=== PATIENT | male | born 1970 | race Caucasian/White ===

== ENCOUNTER 2021-10-04 10:54 | Outpatient (CLI) | payer BC, MEDICAID, SELFPAY ==
--- NOTE | 2021-10-04 06:00 | DI.RAD_ITS ---
Exam(s) XR PAIN CLINIC LUMBAR SP 2V EXAM: XR PAIN CLINIC LUMBAR SP 2V CLINICAL HISTORY: Dx: Lumbar Spondylosis. TECHNIQUE: Fluoroscopy was provided for the referring physician for guidance with performing injecti on procedure. COMPARISON: No exams were available for comparison FINDINGS: Please see procedure note for details. Fluoro time: 66.4 RADIATION DOSE DELIVERED: eran Aiken=42.39 mGy
[2021-10-04 11:27] VITALS: BP 114/89; PULSE 76; RESP 16; TEMP 37.1; O2SAT 98
[2021-10-04 12:07] VITALS: BP 151/99; PULSE 75; RESP 20; O2SAT 99
--- NOTE | 2021-10-04 12:14 | PDOC.PAIN ---
Pain Clinic Procedure Note Procedure Note Procedure Note: Thoraco-lumbar Medial Branch Blocks Umesh Gaspar has been referred to the [facility] for lumbar/sacral medial branch blocks. COMMENTS: I previously evaluated him in our clinic. Pre-procedure pain VAS = 8/10. Dx: Lumbosacral spondylosis without myelopathy Patient was interviewed and the medical record reviewed. There were no medical, pharmacologic, radiographic or other structural contraindications to attempting fluoroscopically guided local anesthetic lumbar/sacral medial branch blocks. Risks and expected side effects as well as potential benefit of the procedure were reviewed and voiced concerns addressed. The printed consent form was signed and witnessed. Standard time-out procedure was performed. Patient was placed in the prone position on the fluoroscopy table and automated blood pressure cuff and pulse oximeter applied. The skin entry points for approaching the anatomic target points of the segmental medial branches of bilateral [id number] identified with anfluoroscopy and marked. Following thorough Chlorhexadine preparation of the skin and draping and 1% lidocaine infiltration of the skin entry points and subcutaneous tissues, a 25 gauge 3.5 spinal needle was placed under fluoroscopic guidance down on to the target point for each respective segmental medial branch.Position was confirmed in A/P, oblique and lateral views with 0.25ml of omnipaque 240. At this point I injected 0.5ml of 0.5% Bupivacaine to each segmental sensory nerve. Vital signs were stable throughout the procedure and were as recorded in the docflowsheet by the nursing staff. Follow up plans and appointments were discussed and was instructed to keep careful note of how the usual pain was modified by these injections. Specifically was asked to keep a pain diary for the next 24 hours using a numeric pain scale of 0-10 and report these results at the follow-up visit. Post procedure instruction was given as documented in the nursing documentation and having met discharge criteria. Patient was discharged from the [facility]. Based on the medial branches blocked today, if the patient has adequate relief and we are able to proceed to radiofrequency ablation, the treatment should result in the denervation of the bilateral T12-L1 and L1-L2 FACET JOINTS. We would expect to denervate a total of 4 facets during the radiofrequency ablation. COMMENTS: His post-procedure pain VAS was 3/10. Avni Javed DO, MPH [facility]-Pain Management [facility] CC: Jeremi Mckay
[2021-10-04] MEDS: Omnipaque 240 MG/ML 50 ML BTL IJ (12:18)
[2021-10-04] MEDS: Bupivacaine 0.5% Pres-Free 10 ML VIAL IJ (12:18)
== END 2021-10-04 10:55 | disposition home or self-care (01) ==
PROVIDERS: PCP Physician Assistant Medical; Visit Provider Preventive Medicine Occupational Medicine
DX: M47.815 Spondylosis without myelopathy or radiculopathy, thoracolumbar region (principal)
CPT/HCPCS: 64493; 64494; 72100; Q9967

== ENCOUNTER 2021-12-26 14:00 | Outpatient (CLI) | payer BC, MEDICAID, SELFPAY ==
--- NOTE | 2021-12-26 06:00 | DI.RAD_ITS ---
Exam(s) XR PAIN CLINIC LUMBAR SP 2V EXAM: XR PAIN CLINIC LUMBAR SP 2V CLINICAL HISTORY: Dx: Lumbar Spondylosis TECHNIQUE: 2D and realtime digital imaging was performed. CONTRAST MATERIAL: Refer to procedure report. COMPARISON: No exams were available for comparison FINDINGS: Fluoroscopy was provided for Dr. Javed during the performance of a medial branch block. Please refer to the procedure report for complete details. Ka,r=41.9 mGy IMPRESSION: RADIATION DOSE DELIVERED:
[2021-12-26 14:16] VITALS: BP 137/91; PULSE 80; RESP 20; TEMP 36.9; O2SAT 96
--- NOTE | 2021-12-26 14:58 | PDOC.PAIN ---
Pain Clinic Procedure Note Procedure Note Procedure Note: Lumbar/Sacral Medial Branch Blocks Umesh Gaspar has been referred to the [facility] for lumbar/sacral medial branch blocks. COMMENTS: He did well with the first blocks on 10/04/21. Pre-procedure pain VAS = 7/10. 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 There were no medical, pharmacologic, radiographic or other structural contraindications to attempting fluoroscopically guided local anesthetic lumbar/sacral medial branch blocks. Risks and expected side effects as well as potential benefit of the procedure were reviewed and voiced concerns addressed. The printed consent form was signed and witnessed. Standard time-out procedure was performed. Patient was placed in the prone position on the fluoroscopy table and automated blood pressure cuff and pulse oximeter applied. The skin entry points for approaching the anatomic target points of the segmental medial branches of bilateral T11, T12, and L1 were identified with anfluoroscopy and marked. Following thorough Chlorhexadine preparation of the skin and draping, a 25 gauge 3.5 spinal needle was placed under fluoroscopic guidance down on to the target point for each respective segmental medial branch.Position was confirmed in A/P, oblique and lateral views with 0.25ml of omnipaque 240. At this point, I injected 0.5cc of 2% Lidocaine at each segmental nerve. Vital signs were stable throughout the procedure and were as recorded in the docflowsheet by the nursing staff. Follow up plans and appointments were discussed and was instructed to keep careful note of how the usual pain was modified by these injections. Specifically was asked to keep a pain diary for the next 24 hours using a numeric pain scale of 0-10 and report these results at the follow-up visit. Post procedure instruction was given as documented in the nursing documentation and having met discharge criteria. Patient was discharged from the [facility]. Based on the medial branches blocked today, if the patient has adequate relief and we are able to proceed to radiofrequency ablation, the treatment should result in the denervation of the bilateral T12-L1 and L1-L2 FACET JOINTS. We would expect to denervate a total of 4 facets during the radiofrequency ablation. COMMENTS: Post-procedure pain VAS = 3/10. Avni Javed DO, MPH [facility]-Pain Management [facility] CC: Jeremi Mckay
[2021-12-26 15:09] VITALS: BP 152/84; PULSE 77; RESP 18; O2SAT 98
[2021-12-26] MEDS: Omnipaque 240 MG/ML 50 ML BTL IJ (15:11)
[2021-12-26] MEDS: Lidocaine 2% Pres-Free 2 ML VIAL IJ (15:11)
== END 2021-12-26 14:01 | disposition home or self-care (01) ==
PROVIDERS: PCP Physician Assistant Medical; Visit Provider Preventive Medicine Occupational Medicine
DX: M47.815 Spondylosis without myelopathy or radiculopathy, thoracolumbar region (principal)
CPT/HCPCS: 64493; 64494; 72100; Q9967

== ENCOUNTER 2022-02-06 07:38 | Outpatient (CLI) | payer MEDICAID, SELFPAY ==
--- NOTE | 2022-02-06 06:00 | DI.RAD_ITS ---
Exam(s) XR PAIN CLINIC LUMBAR SP 2V EXAM: XR PAIN CLINIC LUMBAR SP 2V CLINICAL HISTORY: Dx: Lumbar Spondylosis. TECHNIQUE: Fluoroscopy was provided for the referring physician for guidance with performing pain cl inic injection procedure. COMPARISON: No exams were available for comparison FINDINGS: Please see procedure note for details. Fluoro time: 89.6 seconds RADIATION DOSE DELIVERED: eran Aiken=56.12 mGy
[2022-02-06 07:48] VITALS: BP 136/93; PULSE 74; RESP 20; TEMP 37.1; O2SAT 98
[2022-02-06] MEDS: fentaNYL 100 MCG/2 ML VIAL IVP ×3 (08:26→08:41)
[2022-02-06] MEDS: Midazolam 2 MG/2 ML VIAL IVP (08:27)
[2022-02-06] MEDS: Lactated Ringers 500 ML 80 ML IV (08:48)
[2022-02-06 09:04] VITALS: BP 130/82; PULSE 73; RESP 20; O2SAT 97
--- NOTE | 2022-02-06 09:18 | PDOC.PAIN ---
Pain Clinic Procedure Note Procedure Note Procedure Note: Bilateral Thoracolumbar Radiofrequency with Coolief Machine PROCEDURE NOTE Date of Service: February 06, 2022 Patient: Umesh Gaspar Provider: Avni Javed DO, MPH Pre Operative Diagnosis: Thoracolumbar Spondylosis without Myelopathy Post Operative Diagnosis: Same Post procedure pain; VAS= 8/10 PROCEDURE: Radiofrequency Ablation of medial branches - Bilateral T11, T12, and L1. Umesh Gaspar was brought into the fluoroscopy suite and positioned into the prone position on the fluoroscopy table and allowed to adjust to a position of comfort. A grounding pad was placed on the [right/left] thigh. The lumbar region was widely prepped with a chloraprep solution, allowed to air dry and draped in standard sterile surgical fashion. Local anesthesia was provided by 4 mL of 2% Lidocaine delivered with a 25g needle. A 17g 100 mm radiofrequency introducer needle was placed to the planned anatomic targets guided with intermittent fluoroscopy with a perpendicular approach to terminally place at the junction of the superior articular process and the transverse process of the bilateral T12, L1, and L2. The stylets were removed and radiofrequency probes with a 4mm active tip were then inserted. Needle tip position of the probes was verified in the AP, oblique, and lateral views. At each site, the medial branch nerve was stimulated at 2 Hz to a maximum 1-2 volts determined to finalize safe needle and electrode placement. The patient was awake and responsive during this portion of the procedure. Each target was anesthetized with 1-2 mL of 2% Lidocaine for anesthesia for lesioning and then each target was lesioned at 80 degrees Celsius for 2 minutes and 30 seconds. Tissue impedences were noted to be between 250 and 500 Ohms. Electrodes and needles were then removed and bandages placed over the needle placement sites, the patient then returned to the supine position on a stretcher and transported to the recovery room without hemodynamic, neurologic, or allergic reactions. Fluoroscopic images were printed for hard copy recording and digitally archived. POST PROCEDURE EVALUATION: IMPRESSION: 1. Summary of procedure. Medication given is documented in the MAR. 2. The patient will be contacted in 1-3 weeks 3. Estimated Blood Loss: <5 mls 4. Fluoroscopy time: Documented in the EMR. Follow up plans and appointments were discussed with the Umesh . Post procedure instruction was given as documented in nursing documentation and having met discharge criteria, Umesh was discharged from the [facility]. COMMENTS: No apparent complications. Post-procedure pain: VAS= 2/10. F/U with our office as needed. I personally performed this entire procedure. Avni Javed DO, MPH Attending Physician Pain Management
[2022-02-06] MEDS: Bupivacaine 0.5% Pres-Free 10 ML VIAL IJ (09:32)
[2022-02-06] MEDS: Lidocaine 2% Multi-Dose 20 ML VIAL IJ (09:33)
[2022-02-06] MEDS: methylPREDNISolone ACETATE 40 MG/ML VIAL IJ (09:33)
== END 2022-02-06 07:39 | disposition home or self-care (01) ==
LOC: PC 07:38
PROVIDERS: PCP Physician Assistant Medical; Visit Provider Preventive Medicine Occupational Medicine
DX: M47.815 Spondylosis without myelopathy or radiculopathy, thoracolumbar region (principal)
CPT/HCPCS: 64635; 64636; 72100; J1030; J2250; J3010; J3490